=== PATIENT | male | born 1960 | race Caucasian/White ===

== ENCOUNTER → 2018-12-18 | Outpatient (CLI) | payer OTHER ==
[~2018-12-18] MED LIST: IOPAMIDOL (ISOVUE 370) 100 ML BTL IV ONE
== END ==
LOC: CIMAGING 14:53
PROVIDERS: ATTEND Internal Medicine
DX: I77.71 Dissection of carotid artery (principal); E78.5 Hyperlipidemia, unspecified
CPT/HCPCS: 71275-PO; Q9967

== ENCOUNTER → 2018-12-19 | Outpatient (CLI) | payer OTHER ==
[~2018-12-19] MED LIST changes: -IOPAMIDOL (ISOVUE 370) 100 ML BTL IV ONE; +LIDOCAINE 1% 300 MG/30 ML SDV ONE; +THROMBIN (BOVINE) 5,000 UNIT VIAL TP ONE
== END ==
LOC: FIMAGING 16:20
PROVIDERS: ATTEND Internal Medicine
DX: I72.9 Aneurysm of unspecified site (principal)

== ENCOUNTER 2018-12-26 05:49 | Day surgery (SDC) | payer OTHER ==
[2018-12-26] MEDS ORDERED: LR 1,000 ML IV ONE (06:12)
[2018-12-26] MEDS ORDERED: LIDOCAINE 1% 2 ML INJ ONE (06:34)
--- NOTE | 2018-12-26 06:48 | PDANEPAE ---
ANE History of Present Illness femoral pseudoaneurysm ANE Past Medical History - Cardiovascular History Hx Hypertension: No Hx Arrhythmias: No Hx Chest Pain: No Hx Coronary Artery / Peripheral Vascular Disease: No Hx CHF / Valvular Disease: No Hx Palpitations: No Cardiovascular History Comment: shunt - Pulmonary History Hx COPD: No Hx Asthma/Reactive Airway Disease: No Hx Recent Upper Respiratory Infection: No Hx Oxygen in Use at Home: No Hx Sleep Apnea: No Sleep Apnea Screening Result - Last Documented: Positive - Neurologic History Hx Cerebrovascular Accident: Yes Hx Seizures: No Hx Dementia: No Neurologic History Comment: TIA multiple. stroke - Endocrine History Hx Diabetes: No Hypothyroid: No Hyperthyroid: No Obesity: no - Renal History Hx Renal Disorders: No - Liver History Hx Hepatic Disorders: No - Neurological & Psychiatric Hx Hx Neurological and Psychiatric Disorders: Yes Neurological / Psychiatric History Comment: little flattening on right cheek. & knee - Cancer History Hx Cancer: No - Congenital Disorder History Hx Congenital Disorders: No - GI History GERD: mild Hx Gastrointestinal Disorders: Yes Gastrointestinal History Comment: GERD - Other Health History Other Health History: psoriasis. glaucoma - Chronic Pain History Chronic Pain: No - Surgical History Prior Surgeries: embolectomy for embolis MCA stroke. 2012 [facility] ANE Review of Systems Review of systems is: negative Review of Systems: - Exercise capacity METS (RN): 6 METS ANE Patient History - Allergies Allergies/Adverse Reactions: No Known Allergies Allergy (Verified 12/25/18 14:29) - Home Medications Home medications: home medication list seen and reviewed Home Medications: Cholecalciferol (Vitamin D3) 12/25/18 [Last Taken 12/25/18] Crestor 12/25/18 [Last Taken 12/25/18] Enoxaparin Sodium 12/25/18 [Last Taken 12/25/18] Lidoderm 5% Patch 12/25/18 [Last Taken 12/18/18] Multivitamins W-Iron 12/25/18 [Last Taken 12/25/18] Nexium 12/25/18 [Last Taken 12/25/18] Valium 2 MG (*) 12/25/18 [Last Taken 12/23/18] Warfarin Sodium 12/25/18 [Last Taken 12/22/18] Xalatan 0.005% (*) 12/25/18 [Last Taken 12/25/18] - NPO status NPO Status: no food or drink >8 hours - Anes Hx Anes Hx: no prior problems - Smoking Hx Smoking Status: Never smoked - Alcohol Use Alcohol Use: Rarely - Family Anes Hx Family Anes Hx: none Family Hx Anesthesia Complications: none ANE Labs/Vital Signs - Vital Signs Height: 167.64 cm Weight: 83.007 kg ANE Physical Exam - Airway Neck exam: FROM Mallampati Score: Class 2 Mouth exam: normal dental/mouth exam - Pulmonary Pulmonary: no respiratory distress, clear to auscultation - Cardiovascular Cardiovascular: regular rate and rhythym, no murmur, rub, or gallop - ASA Status ASA Status: III ANE Anesthesia Plan Anesthesia Plan: GA with mask, MAC
--- NOTE | 2018-12-26 06:55 | PDHPUP ---
History & Physical Update H&P update statement: This history and physical update is based on an assessment of the patient which was completed after admission or registration (within 24 hours), but prior to the surgery/procedure. H&P update: H&P reviewed & patient examined, no change in patient's condition since H&P completed
[2018-12-26] MEDS ORDERED: MIDAZOLAM 2 MG/2 ML VIAL IVP ONE (06:57)
--- NOTE | 2018-12-26 06:57 | POSTOPPROG ---
Post Op Note Date of Operation: 12/26/18 Surgeon: Omar Rouse Ore Charger: Rafa Orozco Anesthesiologist: Ashu De La Garza Anesthesia: IV Sedation Pre-op Diagnosis: Right MUSIC ARRANGER pseudoaneurysm Post-op Diagnosis: Same Procedure: Repair right MUSIC ARRANGER pseudoaneurysm Findings: anterior wall MUSIC ARRANGER and lateral wall MUSIC ARRANGER punctures Inf/Abcess present in the surg proc area at time of surgery?: No EBL: 500-1000 Complications: no immediate Specimen(s): none
[2018-12-26] MEDS ORDERED: fentaNYL 100 MCG/2 ML INJ ONE ×2 (07:00→08:40)
[2018-12-26] MEDS ORDERED: PROPOFOL/EMULSION 500 MG/50 ML BOTTLE IV ONE ×3 (07:00→08:50)
[2018-12-26] MEDS ORDERED: BUPIVACAINE 0.5% 30 ML SDV ONE (07:01)
[2018-12-26] MEDS ORDERED: PAPAVERINE HCL 60 MG/2 ML SDV ONE (07:01)
[2018-12-26 07:13] LABS: INR 1.1 (0.83-1.16); PROTIME(PATIENT) 14.4 SEC (12.0-15.0)
[2018-12-26] MEDS ORDERED: LIDOCAINE 1% 300 MG/30 ML SDV ONE (07:42)
[2018-12-26] MEDS ORDERED: HEPARIN 10,000 UNIT/10 ML MDV (1,000 UNIT/ML) ONE (08:49)
[2018-12-26] MEDS ORDERED: HYDROmorphONE/DILAUDID 2 MG/ML INJ IVP PRN (10:15)
[2018-12-26] MEDS ORDERED: fentaNYL 100 MCG/2 ML INJ IVP PRN (10:15)
[2018-12-26] MEDS ORDERED: PROMETHAZINE HCL 25 MG/ML INJ IVP PRN (10:15)
[2018-12-26] MEDS ORDERED: ONDANSETRON 4 MG/2 ML VIAL IVP PRN (10:15)
[2018-12-26] MEDS ORDERED: NALOXONE HCL 0.4 MG/ML INJ IVP PRN (10:15)
--- NOTE | 2018-12-26 10:15 | POSTANESTH ---
Post Anesthetic Evaluation Cardiovascular Status: Normal, Stable Respiratory Status: Normal, Stable Level of Consciousness/Mental Status: Can Participate in Eval Pain Control: Adequate, Prn Tx Ordered Nausea/Vomiting Control: Adequate, Prn Tx Ordered Complications Possibly Related to Anesthesia: None Noted
[2018-12-26] MEDS ORDERED: IOHEXOL 350mgI/ML (OMNIPAQUE) 150 ML BTL IV ONE (10:35)
[2018-12-26 13:24] VITALS: BP 119/76
[2018-12-26] MEDS ORDERED: ONDANSETRON 4 MG/2 ML VIAL ONE (14:55)
--- NOTE | 2018-12-26 18:18 | GOP ---
[f rep st] OPERATIVE REPORT DATE OF OPERATION: 12/26/2018 SURGEON: Omar Rouse MD VOICE PATHOLOGIST: Rafa Orozco MD. ANESTHESIA: MAC. ANESTHESIOLOGIST: Ashu De La Garza MD. PREOPERATIVE DIAGNOSIS: Right common femoral artery pseudoaneurysm. POSTOPERATIVE DIAGNOSIS: Right common femoral artery pseudoaneurysm. PROCEDURE PERFORMED: Direct repair of right common femoral artery pseudoaneurysm. FINDINGS: See below. INDICATIONS: 58-year-old male with a recent history of bilateral carotid artery dissections. He underwent a cerebral micro thrombectomy via a right groin approach. He has developed a large right common femoral artery pseudoaneurysm. A thrombin injection was placed last week with initial sealing and rapid reopening of his sac with a large suspect secondary lateral wall opening. Given the options of attempted repeat injection versus open surgical repair, he has opted to undergo open repair at this time. Risks and benefits were explained including bleeding, infection, recurrence, nerve injury, as well as others. All questions were answered. He desires to proceed. DESCRIPTION OF PROCEDURE: Monitored anesthesia care was started. The right groin was infiltrated 1% lidocaine and 0.5% Marcaine. A longitudinal incision was created. The common femoral artery, as well as superficial and profunda arteries were all tediously dissected out. The common femoral was able to be gained access to just beneath the level of the inguinal ligament. The artery was soft without calcific plaque at this location. There was a large 6 cm pseudoaneurysm easily identified. The superficial femoral artery was tediously dissected distal to this site. There were extremely concrete adhesions from his prior manipulations and attempt at a prior closure. The superficial femoral artery was safely able to be encompassed with vessel loops. The lateral wall of the femoral artery was dissected down towards the profunda femoris artery, which was able to be encompassed with a vessel loop. A heparin bolus was administered. Occluding clamps were placed. The aneurysm sac was initially dissected out further. There were 2 areas of opening, 1 on the medial wall of the artery accounting for the more recent US findings, as well as on the anterior wall, both feeding into the large sac itself, the lateral opening likely accounting for the persistent patency post thrombin injection. The lateral defect was closed with a running Prolene suture primarily. The secondary anterior defect was tediously dissected out. Vascular control was somewhat hampered by side branch backbleeding, which was unable to be identified through the scarred-up groin. Using manual compression, the defect was able to be snuck up upon, both proximally and distally where the anterior wall of the artery was closed with a running Prolene suture as well. Upon release of occluding clamps, there was excellent hemostasis assured. The arteries had been fore bled and back bled prior to reestablishing flow initially through the profunda femoris and secondarily through the superficial femoral artery. Satisfactory hemostasis was assured throughout. Garfield was placed throughout the wound cavity. The defect was closed in layers with running absorbable suture followed by Dermabond. The patient was taken to the recovery room awake in good condition with a palpable pedal pulse. /[id number]/MODL MTDD
== END 2018-12-26 14:51 | disposition home or self-care (01) ==
LOC: FSGY 05:49 → EDSTATUS 07:15 → FSGY 14:51
PROVIDERS: ATTEND Surgery
PROC: 04V Lower Arteries, Restriction (ICD-10-PCS; principal; 2018-12-26 07:15)
DX: I72.4 Aneurysm of artery of lower extremity (principal); I77.71 Dissection of carotid artery; E78.5 Hyperlipidemia, unspecified; K21.9 Gastro-esophageal reflux disease without esophagitis; Z79.01 Long term (current) use of anticoagulants; Z86.73 Personal history of transient ischemic attack (TIA), and cerebral infarction without residual deficits; Z82.49 Family history of ischemic heart disease and other diseases of the circulatory system; Z96.643 Presence of artificial hip joint, bilateral
CPT/HCPCS: J1644; J2250; J2405; J2440; J2704; J3010; Q9967

== ENCOUNTER → 2019-02-25 | Outpatient (CLI) | payer OTHER ==
[~2019-02-25] MED LIST changes: +IOPAMIDOL (ISOVUE 370) 100 ML BTL IV ONE; -LIDOCAINE 1% 300 MG/30 ML SDV ONE; -THROMBIN (BOVINE) 5,000 UNIT VIAL TP ONE
== END ==
LOC: CIMAGING 13:53
DX: Z09 Encounter for follow-up examination after completed treatment for conditions other than malignant neoplasm (principal); I77.71 Dissection of carotid artery; I72.9 Aneurysm of unspecified site
CPT/HCPCS: 70498-PO; Q9967

== ENCOUNTER → 2019-04-28 | Outpatient (CLI) | payer OTHER | LOC: EMCIMAGING 13:54 ==